=== PATIENT | male | born 2000 | race Hispanic/Latino ===

== ENCOUNTER 2021-12-28 11:58 | Emergency (ER) | payer SELFPAY ==
[~2021-12-28] VITALS: Ht 180.3 cm; Wt 106.6 kg
[2021-12-28] MEDS ORDERED: MOTRIN800 MG PO (13:04)
== END 2021-12-28 13:27 | disposition home or self-care (01) ==
LOC: ER 12:03
DX: R07.89 Other chest pain (principal); S29.011A Strain of muscle and tendon of front wall of thorax, initial encounter; R94.31 Abnormal electrocardiogram [ECG] [EKG]
CPT/HCPCS: 71046; 93005; 99283